=== PATIENT | male | born 1985 | race Caucasian/White ===

== ENCOUNTER 2017-05-17 19:28 | Emergency (ER) | payer BC ==
[2017-05-17 19:37] VITALS: BP 157/94
[2017-05-17] MEDS ORDERED: Diphtheria,Pertussis(Acell),Tetanus Vaccine 0.5 ML Syringe IM ONE (19:57)
[2017-05-17] MEDS ORDERED: Lidocaine 1% 20 ML MDV INJECT ONE (19:57)
--- NOTE | 2017-05-17 20:44 | EDM.PDOC ---
ED HPI GENERAL MEDICAL PROBLEM - General Chief Complaint: Laceration Stated Complaint: LACERATION LT PINKY FINGER Time Seen by Provider: 05/17/17 20:00 Source of Information: Reports: Patient History Limitations: Reports: No Limitations - History of Present Illness INITIAL COMMENTS - FREE TEXT/NARRATIVE: HISTORY AND PHYSICAL: History of present illness: [Patient comes to the emergency room for evaluation of a laceration to his left little finger. He was working on a table saw but did not have a safety guard in place and his finger was caught in the saw blade. Occurred approximately 45 minutes before he was seen in the emergency room. No numbness or tingling. He has good sensation to his finger and fingertip. No other injuries. He cannot remember the date of his last tetanus shot. He has not taken any medication for his discomfort. Review of systems: As per history of present illness and below otherwise all systems reviewed and negative. Past medical history: As per history of present illness and as reviewed below otherwise noncontributory. Surgical history: As per history of present illness and as reviewed below otherwise noncontributory. Social history: No reported history of drug or alcohol abuse. Family history: As per history of present illness and as reviewed below otherwise noncontributory. Physical exam: HEENT: Atraumatic, normocephalic. Extremities: Irregular shred-type laceration to medial aspect of L little finger. Tip of fingernail is cut, but does not involve nail matrix. Finger is otherwise atraumatic. Neurovascular unremarkable. Neuro: Awake, alert, oriented. Impression: [Left little finger laceration] Plan: [See procedure note. Wound is dressed by RN. Patient is referred to follow up with Dr. Gonzalez. keep clean and dry. Tylenol/ibuprofen prn discomfort. Pt is in agreement with today' s plan. ] Definitive disposition and diagnosis as appropriate pending reevaluation and review of above. left 5th digit Pain Score (Numeric/FACES): 6 - Related Data Allergies Allergy/AdvReac Type Severity Reaction Status Date / Time No Known Allergies Allergy Verified 05/17/17 19:32 Home Meds: Home Meds Celecoxib [CeleBREX] 100 mg PO BID 05/17/17 [History] Depression Medication 05/17/17 [History] traZODone 150 mg PO DAILY 05/17/17 [History] Past Medical History - Past Health History Medical/Surgical History: Denies Medical/Surgical History HEENT History: Reports: None Cardiovascular History: Reports: None Respiratory History: Reports: None Gastrointestinal History: Reports: None Genitourinary History: Reports: None Musculoskeletal History: Reports: None Neurological History: Reports: None Psychiatric History: Reports: Addiction, Depression Endocrine/Metabolic History: Reports: None Dermatologic History: Reports: None - Infectious Disease History Infectious Disease History: Reports: Chicken Pox - Past Surgical History Male Surgical History: Reports: None Social & Family History - Family History Family Medical History: Noncontributory - Tobacco Use Smoking Status *Q: Current Every Day Smoker Years of Tobacco use: 20 Packs/Tins Daily: 1 - Alcohol Use Days Per Week of Alcohol Use: 0 - Recreational Drug Use Recreational Drug Use: Yes Drug Use in Last 12 Months: Yes ED ROS GENERAL - Review of Systems Review Of Systems: ROS reveals no pertinent complaints other than HPI. ED EXAM, SKIN/RASH Exam: See Below ED SKIN PROCEDURES - Laceration/Wound Repair Left Finger Appearance: Subcutaneous, Irregular, Clean, Other (skin is largely shredded and difficult to reapproximate wound edges. ) Distal NVT: Neuro & Vascular Intact Anesthetic Type: Local Local Anesthesia - Lidocaine (Xylocaine): 1% Plain Local Anesthetic Volume: 4cc Skin Prep: Chlorhexidine (Hibiciens), Saline Exploration/Debridement/Repair: Wound Explored, Minimal Debridement, No Foreign Material Found Closed with: Sutures Suture Size: 3-0 # of Sutures: 5 Suture Type: Nylon Sterile Dressing Applied: Nurse Tetanus Status Addressed: Yes Complications: No Course - Vital Signs Last Recorded V/S: Last Vital Signs Temp 97.3 F 05/17/17 19:35 Pulse 75 05/17/17 19:35 Resp 16 05/17/17 19:35 BP 157/94 H 05/17/17 19:35 Pulse Ox 95 05/17/17 19:35 - Orders/Labs/Meds Orders: Active Orders 24 hr Category Date Time Status Vaccines to be Administered [RC] PER UNIT ROUTINE Care 05/17/17 19:57 Active Meds: Medications Discontinued Medications Generic Name Dose Route Start Last Admin Trade Name Freq PRN Reason Stop Dose Admin Bacitracin 1 dose 05/17/17 21:44 Bacitracin Oint 1 Gm TOP 05/17/17 21:45 ONETIME ONE Diphtheria/Tetanus/Acell Pertussis 0.5 ml 05/17/17 19:57 05/17/17 20:25 Adacel IM 05/17/17 19:58 0.5 ml .ONCE ONE Administration Lidocaine HCl 20 ml 05/17/17 19:57 05/17/17 20:24 Xylocaine 1% INJECT 05/17/17 19:58 20 ml ONETIME ONE Administration Departure - Departure Time of Disposition: 21:45 Disposition: Home, Self-Care 01 Condition: Good Clinical Impression: Laceration of finger Qualifiers: Encounter type: initial encounter Finger: little finger Damage to nail status: with damage Foreign body presence: without foreign body Laterality: left Qualified Code(s): S61.317A - Laceration without foreign body of left little finger with damage to nail, initial encounter - Discharge Information Instructions: Laceration Care, Adult Referrals: PCP,None [Primary Care Provider] - Forms: ED Department Discharge Additional Instructions: The following information is given to patients seen in the emergency department who are being discharged to home. This information is to outline your options for follow-up care. We provide all patients seen in our emergency department with a follow-up referral. The need for follow-up, as well as the timing and circumstances, are variable depending upon the specifics of your emergency department visit. If you don't have a primary care physician on staff, we will provide you with a referral. We always advise you to contact your personal physician following an emergency department visit to inform them of the circumstance of the visit and for follow-up with them and/or the need for any referrals to a consulting specialist. The emergency department will also refer you to a specialist when appropriate. This referral assures that you have the opportunity for follow-up care with a specialist. All of these measure are taken in an effort to provide you with optimal care, which includes your follow-up. Under all circumstances we always encourage you to contact your private physician who remains a resource for coordinating your care. When calling for follow-up care, please make the office aware that this follow-up is from your recent emergency room visit. If for any reason you are refused follow-up, please contact the [facility] emergency department at and asked to speak to the emergency department charge nurse. [facility] Specialty care- Plastic Surgery [address] [place] [address], [address] [place] [address] Phone the office listed above tomorrow morning to schedule for a follow up with Dr. Gonzalez. Do not remove dressing until tomorrow morning. Then you may gently clean your finger with warm water. Apply bacitracin or triple antibiotic ointment and a fresh dressing tomorrow morning. Keep finger clean and dry. Keep covered to prevent contamination. Protect from reinjury. Return to ER as needed as discussed. - My Orders Last 24 Hours: My Active Orders 05/17/17 19:57 Vaccines to be Administered [RC] PER UNIT ROUTINE - Assessment/Plan Last 24 Hours: My Active Orders 05/17/17 19:57 Vaccines to be Administered [RC] PER UNIT ROUTINE
[2017-05-17] MEDS ORDERED: Bacitracin Oint 1 GM U/D Packet TOP ONE (21:44)
== END 2017-05-17 22:13 | disposition home or self-care (01) ==
LOC: MW.ED 19:28
DX: S61.317A Laceration without foreign body of left little finger with damage to nail, initial encounter (principal); F32.9 Major depressive disorder, single episode, unspecified; F17.210 Nicotine dependence, cigarettes, uncomplicated; Z23 Encounter for immunization; Z79.899 Other long term (current) drug therapy; W29.8XXA Contact with other powered hand tools and household machinery, initial encounter
CPT/HCPCS: 12001; 90471; 90715; 99282-25; 99283

== ENCOUNTER 2021-04-23 18:12 | Emergency (ER) | payer BC, MEDICAID ==
[2021-04-23] MEDS ORDERED: Naloxone 0.4 MG/ML SDV IV ONE (18:20)
[2021-04-23 20:27] LABS: BLOOD UREA NITROGEN,BUN 12 mg/dL (7.0-18.0); CARBON DIOXIDE,CO2 19.7 mmol/L (21.0-32.0); CHLORIDE,CL 100 mmol/L (98-107); GLUCOSE RANDOM 199 mg/dL (74-106); POTASSIUM,K 2.8 mmol/L (3.5-5.1); SODIUM,NA 139 mmol/L (136-148)
--- NOTE | 2021-04-23 20:57 | CT ---
INDICATION: Altered LOC. Left-sided weakness TECHNIQUE: CT head without contrast. COMPARISON: None available FINDINGS: The ventricles and sulci are within normal limits. There is no mass effect or midline shift. There is no loss of lugo-white differentiation. There is no evidence of an acute intracranial hemorrhage. No acute calvarial fracture is seen. The visualized paranasal sinuses and mastoid air cells are clear. The visualized orbits are within normal limits. IMPRESSION: No evidence of an acute intracranial hemorrhage, mass effect or loss of lugo-white differentiation. Please note that all CT scans at this facility use dose modulation, iterative reconstruction, and/or weight-based dosing when appropriate to reduce radiation dose to as low as reasonably achievable. Dictated by Ac Loco MD @ 04/23/2021 8:55:[address] Ac Loco @ Apr 23 2021 8:55PM
[2021-04-23] MEDS ORDERED: Sodium Chloride 0.9% 1,000 ML IV ONE (21:03)
--- NOTE | 2021-04-23 21:23 | EDM.PDOC ---
ED HPI GENERAL MEDICAL PROBLEM - General Chief Complaint: General Stated Complaint: EMS ARRIVAL Time Seen by Provider: 04/23/21 18:20 Source of Information: Reports: Patient History Limitations: Reports: No Limitations - History of Present Illness INITIAL COMMENTS - FREE TEXT/NARRATIVE: Patient was seen by previous provider and note was already written. Per previous ivory patient came in today as a stroke alert circular was canceled as he has some left-sided weakness that resolved. Patient states he did use marijuana was from fentanyl patient is now clinically sober symptoms have resolved. Patient also had a CT scan of head that was negative. Patient have elevated white count but no signs of infection. - Related Data Allergies Allergy/AdvReac Type Severity Reaction Status Date / Time No Known Allergies Allergy Verified 04/23/21 19:58 Home Meds: Home Meds . [No Known Home Meds] 04/23/21 [History] Past Medical History - Past Health History Medical/Surgical History: Denies Medical/Surgical History HEENT History: Reports: None Cardiovascular History: Reports: None Respiratory History: Reports: None Gastrointestinal History: Reports: None Genitourinary History: Reports: None Musculoskeletal History: Reports: None Neurological History: Reports: None Psychiatric History: Reports: Addiction, Depression Endocrine/Metabolic History: Reports: None Dermatologic History: Reports: None - Infectious Disease History Infectious Disease History: Reports: Chicken Pox - Past Surgical History Male Surgical History: Reports: None Social & Family History - Family History Family Medical History: No Pertinent Family History - Caffeine Use Caffeine Use: Reports: None - Recreational Drug Use Recreational Drug Use: Yes Recreational Drug Type: Reports: Marijuana/Hashish ED ROS GENERAL - Review of Systems Review Of Systems: See Below ED EXAM, GENERAL - Physical Exam Exam: See Below Course - Vital Signs Last Recorded V/S: Last Vital Signs Temp 97.6 F 04/23/21 18:14 Pulse 93 04/23/21 19:29 Resp 18 04/23/21 19:29 BP 167/136 H 04/23/21 19:29 Pulse Ox 100 04/23/21 19:29 - Orders/Labs/Meds Orders: Active Orders 24 hr Category Date Time Status EKG 12 Lead [EKG Documentation Completion] [RC] STAT Care 04/23/21 18:15 Active Sodium Chloride 0.9% [Normal Saline] 1,000 ml Med 04/23/21 21:03 Active IV .BOLUS Medication Orders Sodium Chloride (Normal Saline) 1,000 mls @ 999 mls/hr IV .BOLUS ONE Stop: 04/23/21 22:03 Labs: Laboratory Tests 04/23/21 04/23/21 04/23/21 Range/Units 18:16 18:20 20:55 WBC 20.30 H (4.0-11.0) K/uL RBC 5.26 (4.50-5.90) M/uL Hgb 14.3 (13.0-17.0) g/dL Hct 42.8 (38.0-50.0) % MCV 81.4 (80.0-98.0) fL MCH 27.2 (27.0-32.0) pg MCHC 33.4 (31.0-37.0) g/dL RDW Std Deviation 38.9 (28.0-62.0) fl RDW Coeff of Jennifer 13 (11.0-15.0) % Plt Count 379 (150-400) K/uL MPV 10.90 (7.40-12.00) fL Neut % (Auto) 74.0 (48.0-80.0) % Lymph % (Auto) 18.7 (16.0-40.0) % [place] % (Auto) 6.5 (0.0-15.0) % Eos % (Auto) 0.6 (0.0-7.0) % Baso % (Auto) 0.2 (0.0-1.5) % Neut # (Auto) 15.0 H (1.4-5.7) K/uL Lymph # (Auto) 3.8 H (0.6-2.4) K/uL [place] # (Auto) 1.3 H (0.0-0.8) K/uL Eos # (Auto) 0.1 (0.0-0.7) K/uL Baso # (Auto) 0.0 (0.0-0.1) K/uL Nucleated RBC % 0.0 /100WBC Nucleated RBCs # 0 K/uL Sodium 139 (136-148) mmol/L Potassium 2.8 L (3.5-5.1) mmol/L Chloride 100 (98-107) mmol/L Carbon Dioxide 19.7 L (21.0-32.0) mmol/L BUN 12 (7.0-18.0) mg/dL Creatinine 1.3 (0.8-1.3) mg/dL Est Cr Clr Drug Dosing 90.46 mL/min Estimated GFR (MDRD) > 60.0 ml/min Glucose 199 H (74-106) mg/dL Calcium 9.6 (8.5-10.1) mg/dL Total Bilirubin 0.3 (0.2-1.0) mg/dL AST 18 (15-37) IU/L ALT 23 (14-63) IU/L Alkaline Phosphatase 73 (46-116) U/L Troponin I < 0.050 (0.000-0.056) ng/mL Total Protein 8.0 (6.4-8.2) g/dL Albumin 4.1 (3.4-5.0) g/dL Globulin 3.9 (2.6-4.0) g/dL Albumin/Globulin Ratio 1.1 (0.9-1.6) Urine Opiates Screen NEGATIVE (NEGATIVE) Ur Oxycodone Screen NEGATIVE (NEGATIVE) Urine Methadone Screen NEGATIVE (NEGATIVE) Ur Barbiturates Screen NEGATIVE (NEGATIVE) Ur Phencyclidine Scrn NEGATIVE (NEGATIVE) Ur Amphetamine Screen NEGATIVE (NEGATIVE) U Methamphetamines Scrn NEGATIVE (NEGATIVE) U Benzodiazepines Scrn NEGATIVE (NEGATIVE) U Cocaine Metab Screen NEGATIVE (NEGATIVE) U Marijuana (THC) Screen POSITIVE (NEGATIVE) Ethyl Alcohol < 3.0 mg/dL Meds: Medications Generic Name Dose Route Start Last Admin Trade Name Freq PRN Reason Stop Dose Admin Sodium Chloride 1,000 mls @ 999 mls/hr 04/23/21 21:03 Normal Saline IV 04/23/21 22:03 .BOLUS ONE Departure - Departure Time of Disposition: 21:21 Disposition: Home, Self-Care 01 Condition: Good Clinical Impression: Drug usage - Discharge Information *PRESCRIPTION DRUG MONITORING PROGRAM REVIEWED*: Not Applicable *COPY OF PRESCRIPTION DRUG MONITORING REPORT IN PATIENT BRYANNA: Not Applicable Referrals: PCP,None [Primary Care Provider] - Additional Instructions: The following information is given to patients seen in the emergency department who are being discharged to home. This information is to outline your options for follow-up care. We provide all patients seen in our emergency department with a follow-up referral. The need for follow-up, as well as the timing and circumstances, are variable depending upon the specifics of your emergency department visit. If you don't have a primary care physician on staff, we will provide you with a referral. We always advise you to contact your personal physician following an emergency department visit to inform them of the circumstance of the visit and for follow-up with them and/or the need for any referrals to a consulting specialist. The emergency department will also refer you to a specialist when appropriate. This referral assures that you have the opportunity for follow-up care with a specialist. All of these measure are taken in an effort to provide you with optimal care, which includes your follow-up. Under all circumstances we always encourage you to contact your private physician who remains a resource for coordinating your care. When calling for follow-up care, please make the office aware that this follow-up is from your recent emergency room visit. If for any reason you are refused follow-up, please contact the [facility] Emergency Department at and asked to speak to the emergency department charge nurse. Please follow up with your primary care physician. If you do not have a primary care physician, see below: [facility] [address] [place] [id number] [facility] [address] [place] [id number] He was seen today for some weakness to 1 side of your body though symptoms resolved at home he also did CT scans of your head and lab work CT did not show any strokes or bleed. You do have elevated white count but no signs of infection. Recommend you keep an eye on this you develop any fevers chills please return to the ED. Otherwise please follow-up with primary care physician. Your symptoms may have been related to the possible drug use but still unclear. The symptoms resolved please return to the ED. Sepsis Event Note (ED) - Evaluation Sepsis Screening Result: No Definite Risk - Focused Exam Vital Signs: Vital Signs Temp Pulse Resp BP Pulse Ox 04/23/21 19:29 93 18 167/136 H 100 04/23/21 19:14 94 20 200/109 H 100 04/23/21 18:44 90 20 165/105 H 99 04/23/21 18:29 87 20 143/69 H 100 04/23/21 18:14 97.6 F 109 H 22 H 142/96 H 100 - My Orders Last 24 Hours: My Active Orders 04/23/21 21:03 Sodium Chloride 0.9% [Normal Saline] 1,000 ml IV .BOLUS - Assessment/Plan Last 24 Hours: My Active Orders 04/23/21 21:03 Sodium Chloride 0.9% [Normal Saline] 1,000 ml IV .BOLUS
[2021-04-23 22:15] VITALS: BP 137/81; PULSE 105
== END 2021-04-23 22:15 | disposition home or self-care (01) ==
LOC: MW.ED 18:14
DX: F12.90 Cannabis use, unspecified, uncomplicated (principal); I10 Essential (primary) hypertension; E11.9 Type 2 diabetes mellitus without complications
CPT/HCPCS: 36415; 70450; 80053; 80305; 80307; 84484; 85025; 99285; J2310; J7030; 93010; 99284